=== PATIENT | female | born 1965 | race Caucasian/White ===

== ENCOUNTER 2016-07-26 07:29 | Day surgery (SDC) | payer BC ==
[2016-07-23 16:44] LABS: HEMATOCRIT 31.8 % (36.0-48.0); HEMOGLOBIN 9.8 g/dL (12.0-16.0)
[2016-07-23 17:05] LABS: BUN (BLOOD UREA NITROGEN) 25 MG/DL (6-23); CALCIUM, SERUM 10.2 MG/DL (8.5-10.4); CHLORIDE, SERUM 112 MMOL/L (96-112); CO2 (CARBON DIOXIDE) 27 MMOL/L (24-34); CREATININE 0.95 MG/DL (0.55-1.02); GFR AFRICAN AMERICAN 81 ML/MIN (>=60); GFR NON AFRICAN AMERICAN 70 ML/MIN (>=60); GLUCOSE, SERUM 133 MG/DL (60-99); SODIUM, SERUM 145 MMOL/L (135-148)
[~2016-07-26 07:29] MED LIST: ADVIL PO; ASABAYER PO; AUG875 PO; AVASTIN IV; AVASTIN OP; BACTROINT TOP; BRIMONIDINE0.2 % OPH; C25 PO; C5 PO; CINNAMON PO; CINNAMONPO PO; CIP5 PO; COMP10B PO; CYMBALTA60 PO; DECADRON PO; DEX4 PO; DORYX100 MG PO; DORZOL/TIMOL1 ML OPH; EYE INJECTION OPH; FEMARA PO; FL250 PO; GLUCOPHAGE1000 MG PO; GLUTAMINE PO; IRON PO; IRON325 MG PO; JANUVIA100 MG PO; K500 PO; LANTUS PO; LANTUS SC; LANTUSCART SC; LEVEMIR SC; LIPITOR20 PO; LOP25 PO; LOVENOX1C SC; MCZ25 PO; NEUR100 PO; NOVOLOG SC; NOVOPEN SC; OCUVITE PO; PCET PO; PENICILLIN G IV; PERCOCET1 TA4 PO; PLAVIX PO; PRIN20 PO; PRIN5 PO; SANTYL250 MG/GM TOP; VITAMIN B PO; XARELTO20 MG PO; ZESTRIL20 MG PO; ZOCOR20 PO; ZOFRANODT8 PO
== END 2016-07-26 17:38 | disposition home or self-care (01) ==
LOC: SDC 07:29
PROVIDERS: Ophthalmology
PROC: 08RJ3JZ Replacement of Right Lens with Synthetic Substitute, Percutaneous Approach (ICD-10-PCS; principal; 2016-07-26 09:15)
DX: H25.11 Age-related nuclear cataract, right eye (principal); I10 Essential (primary) hypertension; E11.9 Type 2 diabetes mellitus without complications; I73.9 Peripheral vascular disease, unspecified
CPT/HCPCS: 80048; 82962; 85014; 85018; 93005; J0360; J2250